=== PATIENT | male | born 1960 | race American Indian/Alaskan Native ===

== ENCOUNTER 2019-06-19 12:46 | Outpatient (CLI) | payer OTHER ==
--- NOTE | 2019-06-19 14:04 | XRay Report ---
Lumbar spine 3 views 1329 INDICATION: History of lumbar surgery, disability evaluation Slight scoliosis is noted. Prominent lower lumbar degenerative changes are seen. Prominent disc space narrowing is noted at L3-4, L4-5 and L5-S1. Large anterior and moderate posterior osteophytes are se en at these levels. No fractures or subluxations are seen. Lower lumbar facet arthritic changes are n oted. Signer Name: Coy Reza MD Signed: 06/19/2019 2:00 PM Workstation Name: [id number]
== END 2019-06-19 12:47 | disposition home or self-care (01) ==
LOC: XRAY 12:46
PROVIDERS: ATTEND Internal Medicine
DX: Z02.71 Encounter for disability determination (principal); M47.816 Spondylosis without myelopathy or radiculopathy, lumbar region; M48.07 Spinal stenosis, lumbosacral region; M25.78 Osteophyte, vertebrae
CPT/HCPCS: 72100